=== PATIENT | male | born 1980 | race Caucasian/White ===

== ENCOUNTER 2017-07-31 06:25 | Emergency (ER) | payer MEDICAID ==
[~2017-07-31] VITALS: Wt 86.5 kg
[2017-07-31] MEDS ORDERED: IBUPROFEN 800 MG TAB PO STA (06:39)
[2017-07-31] MEDS ORDERED: STERILE WATER 1L IRRIG BTL IRR STA (06:39)
[2017-07-31] MEDS ORDERED: DIPHTH/TET/ACEL PERTUSS (ADULT) 0.5 ML VIAL IM* ONE (07:00)
[2017-07-31] MEDS ORDERED: DIPHTH/TET/ACEL PERTUSS (ADULT) 0.5 ML VIAL IM ONE (07:00)
[2017-07-31] MEDS ORDERED: LIDOCAINE 1% (MDV) 20 ML INJ SC ONE (07:00)
[2017-07-31] MEDS ORDERED: CEFAZOLIN 1 GM INJ IM ONE (08:00)
--- NOTE | 2017-07-31 08:01 | RADRPT ---
PROCEDURE: Left hand series CLINICAL INDICATION: Trauma TECHNIQUE: AP, lateral and oblique images of the left hand were obtained COMPARISON: None FINDINGS: There are comminuted acute fractures involving the left second and third proximal phalanges. There i s comminuted acute fracture involving the distal left third metacarpal bone. There are no other frac tures or dislocations. Bony mineralization is normal. No focal bony blastic or lytic lesions. There is soft tissue swelling along the dorsum of the left hand. Soft tissue air suggested laceration. Rec ommend confirmation. No radiodense foreign bodies. IMPRESSION: 1. Fractures involving the left second and third proximal phalanges and third metacarpal bone as ab ove. 2. Soft tissue changes as above without foreign body. RPTAT:AAJJ Physician Irma Date Time Electronically viewed and signed by Aleln Irizarry Physician on 07/31/2017 08:00 /
[2017-07-31] MEDS ORDERED: CEPH-443 PO (08:08)
[2017-07-31] MEDS ORDERED: HYDR-906 PO (08:08)
[2017-07-31] MEDS ORDERED: IBUP-1542 PO (08:08)
--- NOTE | 2017-07-31 08:19 | ERD ---
ER Documentation Chief Complaint Date/Time DATE: 07/31/17 TIME: 08:16 Chief Complaint lac on left hand while connecting generator to truck, bleeding controlled HPI 7-year-old male sustained a injury to his left hand when he get caught between a trailer in a truck. He has bleeding and decreased range of motion of pain from his left hand. The injury is localized to his index and middle finger. Tetanus is not up-to-date. ROS All systems reviewed and are negative except as per history of present illness. Medications Home Meds Active Scripts Cephalexin* (Keflex*) 500 Mg Capsule, 500 MG PO QID for 7 Days, CAP Prov:KYRIE FENG MD 07/31/17 Ibuprofen* (Motrin*) 600 Mg Tab, 600 MG PO Q6, #20 TAB Prov:KYRIE FENG MD 07/31/17 Hydrocodone/Acetaminophen ([place] 5-325 Tablet) 1 Each Tablet, 1 TAB PO Q6H Y for PAIN, #15 TAB Prov:KYRIE FENG MD 07/31/17 Allergies Allergies: Coded Allergies: No Known Allergy (Unverified , 07/31/17) PMhx/Soc Medical and Surgical Hx: pt denies Medical Hx, pt denies Surgical Hx History of Surgery: No Anesthesia Reaction: No Hx Neurological Disorder: No Hx Respiratory Disorders: No Hx Cardiac Disorders: No Hx Psychiatric Problems: No Hx Miscellaneous Medical Probl: No Hx Alcohol Use: Yes Hx Substance Use: No Hx Tobacco Use: Yes Smoking Status: Current every day smoker Physical Exam Vitals Vital Signs Date Time Temp Pulse Resp B/P Pulse Ox O2 Delivery O2 Flow Rate FiO2 07/31/17 06:29 98.4 93 17 121/84 98 Physical Exam Const: [], [id number] per Head: Atraumatic Eyes: Normal Conjunctiva ENT: Normal External Ears, Nose and Mouth. Neck: Full range of motion..~ No meningismus. Resp: Clear to auscultation bilaterally Cardio: Regular rate and rhythm, no murmurs Abd: Soft, non tender, non distended. Normal bowel sounds Skin: No petechiae or rashes Back: No midline or flank tenderness Ext: No cyanosis, or edema. Left hand shows a laceration across the middle of the left palm extending up to the proximal phalange of the index finger. Patient does peer to have normal flexion of MCP, PIP and DIP joints of the affected extremities. Patient has difficulty extending his index finger. There is a small 1 cm laceration on the dorsum of the proximal left index finger. Patient is quite large and extends through the dermis and subcutaneous fat. No obvious tendon laceration appreciated grossly. Neur: Awake and alert Psych: Normal Mood and Affect Results 24 hrs Current Medications Medications (Trade) Dose Ordered Sig/Semaj Route PRN Reason Start Time Stop Time Status Last Admin Dose Admin Diphtheria/ Tetanus/Acell Pertussis (Adacel) 0.5 ml ONCE ONCE IM* 07/31/17 07:00 07/31/17 07:01 DC Diphtheria/ Tetanus/Acell Pertussis (Adacel) 0.5 ml ONCE ONCE IM 07/31/17 07:00 07/31/17 07:01 DC 07/31/17 06:49 Sterile Water (Water Sterile For Irrigation) 1,000 ml ONCE STAT IRR 07/31/17 06:39 07/31/17 06:41 DC 07/31/17 06:51 Ibuprofen (Motrin) 800 mg ONCE STAT PO 07/31/17 06:39 07/31/17 06:41 DC 07/31/17 06:47 Lidocaine (Xylocaine 1% (Mdv) 20 ml) 20 ml ONCE ONCE SC 07/31/17 07:00 07/31/17 07:01 DC Cefazolin Sodium (Ancef) 1 gm ONCE ONCE IM 07/31/17 08:00 07/31/17 08:01 DC 07/31/17 07:56 Procedures/MDM X-ray left hand 3V interpreted by me: Scaphoid: [Normal] Bones: 1-2 no fractures and comminuted involving the left index, left middle finger and third metacarpal shaft. Joints: [No dislocation] Foreign body: [None] person-comminuted fracture of the left index finger longitudinally and longitudinal fractures of the left middle finger and left third metacarpal. Given a tetanus booster and Ancef 1 g IM. He was copiously irrigated with normal saline. 8 cc of lidocaine was used for local infiltration. 13 3-0 sutures were placed in total reapproximation laceration. Patient was placed in a left hand extension splint and sling and was neurovascular intact after the splint and sling. She was advised that it is a crush injury with open fractures of the left hand. He is at risk for permanent disability. Patient is right-handed. Patient will be discharged home with instructions and counseling on the importance of hand surgery follow-up. He will be referred to local hand surgeons as well as pain clinic at [facility]. Patient was advised for 2 day wound check in 10 -14 days suture removal as well. Continue for fevers, redness, new worsening symptoms. Only no evidence of neurologic deficits but hand surgery evaluation stressed. Departure Diagnosis: Primary Impression: Crush injury of hand Encounter type: initial encounter Laterality: left Qualified Code: S67.22XA - Crushing injury of left hand, initial encounter Additional Impressions: Fracture Laceration Condition: Stable Patient Instructions: Fracture, Hand (Open), Laceration, Hand Referrals: ARLEN BUTT MD [facility] Additional Instructions: There are several fractures in hand from crush injury at risk for permanent disability.. Wound check in 2 days and suture removal in 10-14 days. Important to see a hand specialist within the next week for further evaluation. Recommend [facility] or may need referral by primary doctor. For fevers, redness, new symptoms. KYRIE FENG MD Jul 31, 2017 08:19
== END 2017-07-31 08:47 | disposition left against medical advice (07) ==
LOC: FTE 06:25
DX: S61.211A Laceration without foreign body of left index finger without damage to nail, initial encounter (principal); F17.210 Nicotine dependence, cigarettes, uncomplicated; W23.1XXA Caught, crushed, jammed, or pinched between stationary objects, initial encounter; Y92.9 Unspecified place or not applicable; Z23 Encounter for immunization
CPT/HCPCS: 12001; 73130; 90471; 90715; 96372; A4217; J0690; Z7502; Z7610